=== PATIENT | female | born 1965 | race African-American/Black ===

== ENCOUNTER → 2021-12-20 16:11 | Outpatient (CLI) | payer OTHER, SELFPAY ==
--- NOTE | 2021-12-20 16:14 | DI.RAD.S_ITS ---
PROCEDURE: XR KUB INDICATIONS: Hematuria/ kidney stone TECHNIQUE: One view of the abdomen acquired. COMPARISON: [facility], RG, CT KUB, 11/30/2021, 12:29. FINDINGS: Surgical changes and devices: None. Bowel: Bowel gas pattern is normal. Soft tissues: No suspicious abdominal calcifications. Visualized solid organ contours appear normal in size. Bones: No suspicious bony lesions. IMPRESSION: No definitive radiopaque renal, ureteral or bladder calculi. Dictated by: Dwain ALEMAN Interpreted: Ilan Ricci MD on 12/20/2021 at 17:04 Transcribed by: JUSTIN on 12/20/2021 at 17:05 Approved by: Ilan Ricci M.D. on 12/21/2021 at 13:18
== END ==
PROVIDERS: PCP Family Medicine; Referring Provider Urology; Visit Provider Urology
DX: R31.29 Other microscopic hematuria (principal)
CPT/HCPCS: 74018

== ENCOUNTER → 2021-12-31 08:10 | Outpatient (CLI) | payer OTHER, SELFPAY ==
--- NOTE | 2021-12-31 08:13 | DI.RAD.S_ITS ---
PROCEDURE: XR KUB INDICATIONS: Kidney stone TECHNIQUE: One view of the abdomen acquired. COMPARISON: [facility], RG, CT KUB, 11/30/2021, 12:29. [facility], CR, XR KUB, 12/20/2021, 16:27. FINDINGS: Surgical changes and devices: None. Bowel: Bowel gas pattern is normal. Soft tissues: Calculus at the right renal pelvis. Punctate calculus at the inferior pole the right kidney. These appear similar to the prior CT KUB. These are difficult to visualize. No suspicious abdominal calcifications. Visualized solid organ contours appear normal in size. Bones: No suspicious bony lesions. IMPRESSION: Right renal pelvis calculus is similar. Small calculus at the inferior pole the right kidney is unchanged. Consider CT KUB for further evaluation. Dictated by: Yariel Persaud M.D. on 12/31/2021 at 9:19 Approved by: Yariel Persaud M.D. on 12/31/2021 at 9:22
== END ==
PROVIDERS: PCP Family Medicine; Referring Provider Urology; Visit Provider Urology
DX: N20.0 Calculus of kidney (principal); R31.29 Other microscopic hematuria
CPT/HCPCS: 74018

== ENCOUNTER 2022-02-27 14:08 | Day surgery (SDC) | payer OTHER, SELFPAY ==
[2022-02-26 08:32] VITALS: BMI 39.1
[2022-02-27] VITALS (8 sets, daily range): BP systolic 121–142; BP diastolic 74–87; PULSE 69–73; RESP 14–17; TEMP 36.1–36.6; O2SAT 92–98; BMI 39.1
--- NOTE | 2022-02-27 | DI.RAD.S_ITS ---
PROCEDURE: XR ABDOMEN 1V INDICATIONS: RIGHT STENT PLACEMENT TECHNIQUE: 3 intra-operative images acquired by the Urology service. COMPARISON: None. FINDINGS: Intraoperative urography demonstrating placement of a ureteral stent in the lower pole of a duplex system. IMPRESSION: Intraoperative views of ureteral stent placement. Dictated by: Davian Jones M.D. on 02/28/2022 at 8:30 Approved by: Davian Jones M.D. on 02/28/2022 at 8:30
[2022-02-27 14:47] LABS: COVID19 -Nasal RAPID Negative (Negative)
[2022-02-27] MEDS: LACTATED RINGERS 1,000 ML 21 ML IV (15:00)
--- NOTE | 2022-02-27 16:00 | PM.PREOP ---
Pre-operative Note COVID-19 COVID-19 status: Negative Result date/Date tested (Pos, Neg/Pending): 02/27/22 Criteria for continued procedure: Delay expected to result in less-positive ultimate med/surg outcome and Non-surgical alternatives not available or appropriate per current SOC Interval Note History & Physical reviewed/Exam performed by Physician: Yes Changes to H&P: No
--- NOTE | 2022-02-27 16:43 | SUR.OPER ---
Lithotomy on padded OR bed, head on pillow, arms secured on padded arm boards at <90 degrees abduction. Legs secured in padded yellow fins stirrups.
[2022-02-27] MEDS: CEFAZOLIN 2 GM/100 ML PREMIX 100 ML IV (16:52)
[2022-02-27] MEDS: IOPAMIDOL 50 ML VIAL INJ (17:00)
--- NOTE | 2022-02-27 17:07 | PM.OP.1 ---
Procedure & Clinicians Procedure: Cystoscopy with right retrograde pyelogram and right ureteral stent placement Same procedure as scheduled: Yes Indications: This 57-year-old female presented with hematuria was found to have a large right renal calculus and presents this time for stent placement. With designs on future lithotripsy see history and physical. Surgeon: Rogelio Hernández Click Yes if Unassisted: Yes Anesthesia Type: General Operative Notes Findings: External genitalia and urethral meatus are normal urethra is normal along its length. Within the bladder there are no mucosal abnormalities. 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 There was some hydronephrosis. The upper pole moiety appeared normal Closure Type: not applicable Specimen(s): none sent Prosthetic devices, grafts, tissues, transplants, or devices: Seven Brazilian by multi length stent lower pole moiety right side no string Estimated Blood Loss (mL): 0 Blood products transfused: none Procedure in detail: Procedure in detail: After informed consent was obtained, the patient was identified and brought to the operating room. She was then placed in a supine position on the table where anesthesia was induced and maintained. Ensuring an adequate level of anesthesia the patient was then transitioned to the lithotomy position. Once in the lithotomy position she was prepped, draped and prepared for Transurethral procedure. After time-out and ensuring an adequate level of anesthesia a 21 Brazilian cystoscope was passed through the urethra in the bladder cystoscopy performed. Having identified 2 right ureteral orifices a cone-tip catheter was inserted and the ?lower orifice? was cannulated and the collecting system filled with contrast as it turns out this was actually the lower pole moiety the 2nd more cephalad orifice was then cannulated and contrast instilled and fluoroscopic images obtained and this turned out to be the upper pole. The stone was in the lower pole therefore a wire was passed up and into the lower pole collecting system the stent was then passed over the wire in a coaxial fashion coiled within the renal pelvis under fluoroscopic visualization in the bladder under direct vision. The wire was removed grasping forceps was inserted stent was grasped and the nylon harness was removed. Fluoroscopy revealed the stent to be in excellent position in the upper pole and under direct vision it was in excellent position within the bladder. At this point the bladder was drained the scope was removed and the patient was awakened having tolerated the procedure well to be transferred to the postanesthesia care unit. There were no complications Complications: none Post-operative Condition: stable Disposition: PACU Plan for aftercare: Patient will follow-up in my office in approximately 10 days to be scheduled for extracorporeal shockwave lithotripsy.
== END 2022-02-27 18:44 | disposition home or self-care (01) ==
PROVIDERS: PCP Family Medicine; Referring Provider Urology; Visit Provider Urology
PROC: (CPT 52332; principal; 2022-02-27 15:30)
DX: N20.0 Calculus of kidney (principal); Z20.822 Contact with and (suspected) exposure to COVID-19; N13.30 Unspecified hydronephrosis
CPT/HCPCS: 52332; 74018; 76000; 82962; 87635; J0690; J1100; J2250; J2405; J2704; J3010

== ENCOUNTER → 2022-03-04 11:36 | Outpatient (CLI) | payer OTHER, SELFPAY ==
--- NOTE | 2022-03-04 11:38 | DI.RAD.S_ITS ---
PROCEDURE: XR KUB INDICATIONS: Kidney stones TECHNIQUE: One view of the abdomen acquired. COMPARISON: [facility], RG, CT KUB, 11/30/2021, 12:29. [facility], CR, XR KUB, 12/20/2021, 16:27. [facility], CR, XR KUB, 12/31/2021, 8:33. FINDINGS: Surgical changes and devices: Right ureteral stent. Bowel: Bowel gas pattern is normal. Soft tissues: Right ureteropelvic junction calculus is present, as before measuring roughly 25 mm. Visualized solid organ contours appear normal in size. Bones: No suspicious bony lesions. IMPRESSION: 1. Right ureteral stent. 2. Right ureteropelvic junction calculus. Dictated by: Cassy Mittal M.D. on 03/04/2022 at 10:58 Approved by: Cassy Mittal M.D. on 03/04/2022 at 10:59
== END ==
PROVIDERS: PCP Family Medicine; Referring Provider Urology; Visit Provider Urology
DX: N20.1 Calculus of ureter (principal); R31.29 Other microscopic hematuria; Z96.0 Presence of urogenital implants
CPT/HCPCS: 74018

== ENCOUNTER → 2022-03-09 09:07 | Outpatient (CLI) | payer OTHER, SELFPAY | PROVIDERS: PCP Family Medicine; Visit Provider Urology | DX: N20.0 Calculus of kidney (principal); R31.29 Other microscopic hematuria; R82.81 Pyuria; R30.0 Dysuria; R35.0 Frequency of micturition; Z96.0 Presence of urogenital implants | CPT/HCPCS: 81002; 87086; 99214 ==

== ENCOUNTER 2022-03-27 10:55 | Day surgery (SDC) | payer OTHER, SELFPAY ==
[2022-03-23 09:47] VITALS: BMI 39.1
[2022-03-27] VITALS (8 sets, daily range): BP systolic 97–120; BP diastolic 62–76; PULSE 77–86; RESP 11–17; TEMP 36.2–36.6; O2SAT 92–97; BMI 39.1
[2022-03-27] MEDS: LACTATED RINGERS 1,000 ML 21 ML IV (11:35)
--- NOTE | 2022-03-27 12:02 | PM.PREOP ---
Pre-operative Note COVID-19 COVID-19 status: Negative Result date/Date tested (Pos, Neg/Pending): 03/26/22 Criteria for continued procedure: Delay expected to result in less-positive ultimate med/surg outcome and Non-surgical alternatives not available or appropriate per current SOC Interval Note History & Physical reviewed/Exam performed by Physician: Yes Changes to H&P: No
[2022-03-27] MEDS: CEFAZOLIN 2 GM/100 ML PREMIX 100 ML IV (12:30)
--- NOTE | 2022-03-27 13:03 | SUR.OPER ---
Supine on padded lithotripsy table, head on pillow, arms padded and tucked at sides, legs uncrossed, gel to heels
--- NOTE | 2022-03-27 13:26 | PM.OP.1 ---
Procedure & Clinicians Procedure: Right extracorporeal shockwave lithotripsy Same procedure as scheduled: Yes Indications: This 57-year-old female presents for right extracorporeal shockwave lithotripsy after having been found to have a large right renal calculus. She was offered percutaneous nephrostolithotomy and ureteroscopy another endoscopic means and she is insistent on extracorporeal shockwave lithotripsy. She would previously had a right ureteral stent placed to dilate the ureter. He presents at this time for the above procedure. Surgeon: Rogelio Hernández Click Yes if Unassisted: Yes Anesthesia Type: General Operative Notes Findings: Stone and stent or noted on the right side and in on altered position from previous imaging. The stone did appear to fragment receiving a total of 2500 shocks at level 7. It is unclear if the stone fragmented completely and it may be that the patient will need a 2nd procedure which she had previously been counseled about. We will see how it goes. Closure Type: not applicable Specimen(s): none sent Estimated Blood Loss (mL): 0 Procedure in detail: Procedure in detail: After informed consent was obtained, the patient was identified and brought to the operating room. She was transferred to the Lithotripter in the supine position. She then had anesthesia induced and maintained. She was padded stabilized on the table. Then ensuring an adequate level of anesthesia and after time-out the stone was localized at F2 via the imaging system and shockwave delivered at level 7 with periodic reimaging and re localization of the stone to ensure fragmentation. At 2500 shocks the shockwave head was rotated out and fluoroscopy performed revealing the stone to have been fragmented. At this point the patient was awakened having tolerated the procedure well there were no complications she was transferred to the postanesthesia care unit to be discharged to home straining her urine and saving any fragments that she catches to bring back to her follow-up appointment. Complications: none Post-operative Condition: stable Disposition: PACU Plan for aftercare: Discharge to home patient to strain all urine and save fragments patient to return to my clinic in approximately 10-14 days with a KUB.
== END 2022-03-27 14:41 | disposition home or self-care (01) ==
PROVIDERS: PCP Family Medicine; Referring Provider Urology; Visit Provider Urology
PROC: (CPT 50590; principal; 2022-03-27 12:30)
DX: N20.0 Calculus of kidney (principal); R31.29 Other microscopic hematuria
CPT/HCPCS: 50590; 82962; J0330; J0690; J2405; J2704; J3010

== ENCOUNTER → 2022-04-08 08:44 | Outpatient (CLI) | payer OTHER, SELFPAY ==
--- NOTE | 2022-04-08 08:46 | DI.RAD.S_ITS ---
PROCEDURE: XR KUB INDICATIONS: Kidney Stones TECHNIQUE: One view of the abdomen acquired. COMPARISON: [facility], CR, XR ABDOMEN 1V, 02/27/2022, 18:15. [facility], CR, XR KUB, 03/04/2022, 11:37. FINDINGS: Surgical changes and devices: There is a right-sided ureteral stent, with the ends seen in the expected locations. Bowel: Bowel gas pattern is normal. Soft tissues: Along the proximal aspect of the stent, there is a stone seen, likely at the ureteral pelvic junction measuring 7 mm. Stone fragments can be seen overlying the inferior right kidney, which measure up to 2.2 cm, when measured together. Bones: No suspicious bony lesions. IMPRESSION: Right-sided ureteral stent, with a 7 mm stone fragment seen along the proximal aspect of the stent. Numerous right kidney stone fragments can be seen inferiorly. Dictated by: Hima Luke M.D. on 04/08/2022 at 9:18 Approved by: Hima Luke M.D. on 04/08/2022 at 9:19
== END ==
PROVIDERS: PCP Family Medicine; Referring Provider Urology; Visit Provider Urology
DX: N20.0 Calculus of kidney (principal); Z96.0 Presence of urogenital implants
CPT/HCPCS: 74018

== ENCOUNTER → 2022-04-11 08:45 | Outpatient (CLI) | payer OTHER, SELFPAY ==
[2022-04-14 23:06] LABS: Ca oxalate monohydr 70 % (.); Size 1x3 mm (.); Uric Acid 30 % (.)
== END ==
PROVIDERS: PCP Family Medicine; Visit Provider Urology
DX: N20.0 Calculus of kidney (principal)
CPT/HCPCS: 82365

== ENCOUNTER → 2022-04-28 08:56 | Outpatient (CLI) | payer OTHER, SELFPAY ==
--- NOTE | 2022-04-28 08:58 | DI.RAD.S_ITS ---
PROCEDURE: XR KUB INDICATIONS: Kidney stones follow-up TECHNIQUE: One view of the abdomen acquired. COMPARISON: [facility], , XR KUB, 04/08/2022, 8:44. FINDINGS: Surgical changes and devices: Right double-J ureteral stent present. Bowel: Bowel gas pattern is normal. Soft tissues: Persistent calcifications project over the right renal shadow, similar prior Bones: No suspicious bony lesions. IMPRESSION: Stable KUB radiographs. Calcifications projecting over the right renal shadow remain unchanged. Approved by: Isaiah Mendoza M.D. on 04/28/2022 at 11:23
== END ==
LOC: RAD 08:58
PROVIDERS: PCP Family Medicine; Referring Provider Urology; Visit Provider Urology
DX: N20.0 Calculus of kidney (principal); Z96.0 Presence of urogenital implants
CPT/HCPCS: 74018

== ENCOUNTER → 2022-05-01 08:35 | Outpatient (CLI) | payer OTHER, SELFPAY | PROVIDERS: PCP Family Medicine; Visit Provider Urology | DX: N20.0 Calculus of kidney (principal); R31.29 Other microscopic hematuria | CPT/HCPCS: 81002; 87086 ==

== ENCOUNTER → 2022-05-21 06:38 | Outpatient (CLI) | payer OTHER, SELFPAY ==
--- NOTE | 2022-05-21 06:39 | DI.RAD.S_ITS ---
PROCEDURE: XR KUB INDICATIONS: Kidney stone TECHNIQUE: One view of the abdomen acquired. COMPARISON: [facility], CR, XR KUB, 04/28/2022, 9:00. FINDINGS: Surgical changes and devices: Right-sided ureteral stent is noted in place. Bowel: Bowel gas pattern is normal. Soft tissues: 7 mm calcification is again seen projecting adjacent to proximal ureteral stent at approximately L3 level unchanged from prior study. No left-sided renal calcification is seen. Visualized solid organ contours appear normal in size. Bones: No suspicious bony lesions. IMPRESSION: Suggestion of right UPJ/proximal ureteral stone and right-sided ureteral stent in place. Dictated by: Hung Guerra M.D. on 05/21/2022 at 8:40 Approved by: Hung Guerra M.D. on 05/21/2022 at 8:41
== END ==
PROVIDERS: PCP Family Medicine; Referring Provider Urology; Visit Provider Urology
DX: N20.0 Calculus of kidney (principal); Z96.0 Presence of urogenital implants
CPT/HCPCS: 74018

== ENCOUNTER 2022-05-28 08:50 | Day surgery (SDC) | payer OTHER, SELFPAY ==
[2022-05-23 15:16] VITALS: BMI 39.1
[2022-05-28] VITALS (7 sets, daily range): BP systolic 93–116; BP diastolic 61–70; PULSE 90–101; RESP 9–19; TEMP 36.1–36.6; O2SAT 95–99; BMI 39.1
--- NOTE | 2022-05-28 09:08 | PM.PREOP ---
Pre-operative Note COVID-19 COVID-19 status: Not tested Criteria for continued procedure: Delay expected to result in less-positive ultimate med/surg outcome and Non-surgical alternatives not available or appropriate per current SOC Interval Note History & Physical reviewed/Exam performed by Physician: Yes Changes to H&P: No
[2022-05-28] MEDS: LACTATED RINGERS 1,000 ML 21 ML IV (09:26)
--- NOTE | 2022-05-28 09:56 | SUR.OPER ---
Supine on ESWL table, head on pillow, arms padded and tucked at sides, legs uncrossed. Foam wedge under knees, gel pad under heels and under arms. Covered with warm blankets.
--- NOTE | 2022-05-28 10:31 | P.OP_ITS ---
Procedure & Clinicians Procedure: Right extracorporeal shockwave lithotripsy Same procedure as scheduled: Yes Indications: This 57-year-old female presented with a large stone. She would previously undergone recently extracorporeal shockwave lithotripsy. She has a fragment of at the UPJ which may be a core fragment presents this time for treatment of the residual stone. Surgeon: Rogelio Hernández Click Yes if Unassisted: Yes Anesthesia Type: General Operative Notes Findings: There was a fragment at the UPJ in the sexually turns out to be 2 fragments. In that as the procedure began 1 of the fragments popped into the renal pelvis. Both of these stones were treated. One thousand seven hundred shocks at level 7-9 for the UPJ stone and 300 shocks for the stone which popped into the renal pelvis. They both appeared to fragment well. Stent remained in place in good position no significant finding was noted. Closure Type: not applicable Specimen(s): none sent Estimated Blood Loss (mL): 0 Procedure in detail: Procedure in detail: After informed consent was obtained, the patient was identified and brought to the operating room. She was placed in the supine position on the Lithotripter. Once the supine position on the Lithotripter anesthesia was induced and maintained. After time-out, ensuring an adequate level of anesthesia the UPJ stone was targeted via the imaging system and sh ockwave delivered. As the procedure progressed periodic reimaging and re localization of the stone was not done to ensure maximal energy delivered to the stone. At a 1000 shocks the shockwave head was rotated out and fluoroscopy performed it was then apparent that there was a renal pelvic stone which had popped out of the UPJ. This was then targeted via the imaging system and delivered 300 shocks which fragmented the stone well. Attention was then turned back to the UPJ stone which received the remainder of the shock waves for a total of 2000 shocks 300 to the renal pelvic stone and 1700 to the UPJ stone. At 2000 shocks the shockwave head was rotated out and again pole stones appeared to fragmented quite well. At this point the patient was awakened having tolerated the procedure well transferred to the postanesthesia care unit. There were no complications Complications: none Post-operative Condition: stable Disposition: PACU Plan for aftercare: Patient is to be discharged to home straining urine saving any fragments to bring to follow-up will see her back in approximately 2 weeks with a KUB.
== END 2022-05-28 11:45 | disposition home or self-care (01) ==
PROVIDERS: PCP Family Medicine; Referring Provider Urology; Visit Provider Urology
PROC: (CPT 50590; principal; 2022-05-28 09:15)
DX: N20.0 Calculus of kidney (principal); Z96.0 Presence of urogenital implants
CPT/HCPCS: 50590; J0330; J2250; J2405; J3010

== ENCOUNTER → 2022-06-10 08:35 | Outpatient (CLI) | payer OTHER, SELFPAY ==
--- NOTE | 2022-06-10 08:36 | DI.RAD.S_ITS ---
PROCEDURE: XR KUB INDICATIONS: kidney stones TECHNIQUE: One view of the abdomen acquired. COMPARISON: [facility], CR, XR KUB, 05/21/2022, 6:48. FINDINGS: Surgical changes and devices: Double-J stent projects over the right collecting system and bladder. Bowel: Bowel gas pattern is normal. Soft tissues: Previously seen calcification at the right L3 level is no longer evident on today's exam. No suspicious abdominal calcifications. Visualized solid organ contours appear normal in size. Bones: No suspicious bony lesions. IMPRESSION: Resolution of previously seen density along the right ureteral stent. Dictated by: Rogelio Morton M.D. on 06/10/2022 at 9:32 Approved by: Rogelio Morton M.D. on 06/10/2022 at 9:34
== END ==
PROVIDERS: PCP Family Medicine; Referring Provider Urology; Visit Provider Urology
DX: N20.0 Calculus of kidney (principal); Z96.0 Presence of urogenital implants
CPT/HCPCS: 74018

== ENCOUNTER → 2022-06-12 15:11 | Outpatient (CLI) | payer OTHER, SELFPAY | PROVIDERS: PCP Family Medicine; Visit Provider Urology | DX: R31.29 Other microscopic hematuria (principal); N20.0 Calculus of kidney; R82.81 Pyuria; Z96.0 Presence of urogenital implants | CPT/HCPCS: 81002; 87086 ==

== ENCOUNTER → 2022-07-06 08:16 | Outpatient (CLI) | payer OTHER, SELFPAY | PROVIDERS: PCP Family Medicine; Visit Provider Urology | DX: N20.0 Calculus of kidney (principal); R31.29 Other microscopic hematuria; Z96.0 Presence of urogenital implants | CPT/HCPCS: 52310; 81002; 87086 ==